=== PATIENT | female | born 1960 ===

== ENCOUNTER 2023-12-11 08:38 | Day surgery (SDC) | payer OTHER | END 2023-12-11 13:15 | disposition home or self-care (01) | LOC: AMB-ENDOS 08:38 | PROVIDERS: ATTEND Surgery | DX: R10.9 Unspecified abdominal pain (principal); R19.4 Change in bowel habit; R19.7 Diarrhea, unspecified; K64.8 Other hemorrhoids; K57.30 Diverticulosis of large intestine without perforation or abscess without bleeding; Z20.822 Contact with and (suspected) exposure to COVID-19; Z88.6 Allergy status to analgesic agent ==